=== PATIENT | male | born 1995 | race Caucasian/White ===

== ENCOUNTER → 2020-07-20 | Outpatient (CLI) | payer MEDICARE, MEDICAID | END | disposition home or self-care (01) | LOC: CVU 16:00 | PROVIDERS: ATTEND Internal Medicine Cardiovascular Disease | DX: R55 Syncope and collapse (principal); I47.1 Supraventricular tachycardia | CPT/HCPCS: 93306 ==

== ENCOUNTER 2020-12-26 14:14 | Outpatient (CLI) | payer MEDICARE, MEDICAID ==
[2020-12-26] MEDS ORDERED: LAMO200T6 PO (14:54)
[2020-12-27] MEDS ORDERED: BACL-19 PO (13:41)
[2020-12-27] MEDS ORDERED: METO25TA91 PO (13:41)
[2020-12-27] MEDS ORDERED: MELO15TA24 PO (13:41)
[2020-12-27] MEDS ORDERED: LISD60CA PO (13:41)
[2020-12-27] MEDS ORDERED: BREX2TAB PO (13:41)
[2020-12-27] MEDS ORDERED: BENZ2TAB6 PO (13:41)
[2020-12-27] MEDS ORDERED: MIDO5TAB9 PO (13:41)
[2020-12-27] MEDS ORDERED: MONT10TA6 PO (13:41)
[2020-12-30] MEDS ORDERED: OMEP-110 PO (13:01)
[2020-12-30] MEDS ORDERED: REMIFENTANIL 2 MG ONE (13:55)
== END 2020-12-30 18:20 | disposition home or self-care (01) ==
LOC: STAR 14:14
PROVIDERS: ATTEND Otolaryngology
DX: Z20.822 Contact with and (suspected) exposure to COVID-19 (principal); J32.0 Chronic maxillary sinusitis; J34.2 Deviated nasal septum; H04.222 Epiphora due to insufficient drainage, left side
CPT/HCPCS: U0003; U0005

== ENCOUNTER 2020-12-30 12:04 | Day surgery (SDC) | payer MEDICARE, MEDICAID ==
[~2020-12-30] VITALS: Ht 190.5 cm; Wt 125.3 kg
[~2020-12-30 12:04] MED LIST: BACL-19 PO; BENZ2TAB6 PO; BREX2TAB PO; FENTANYL PF 250 MCG/5ML ONE; LAMO200T6 PO; LISD60CA PO; MELO15TA24 PO; METO25TA91 PO; MIDAZOLAM 1 MG/ML, 2ML ONE; MIDO5TAB9 PO; MONT10TA6 PO; PROPOFOL 50 ML ONE
[2020-12-30 12:56] VITALS: BP 132/85
[2020-12-30] MEDS ORDERED: LACTATED RINGERS 1,000 ML IV SCH (13:00)
[2020-12-30] MEDS ORDERED: CHLORHEXIDINE 15 ML UDC PO ONE (13:00)
[2020-12-30] MEDS ORDERED: OMEP-110 PO (13:01)
[2020-12-30] MEDS ORDERED: HYDROmorphone 1 MG/ML, 1ML INJ ONE (13:04)
[2020-12-30] MEDS ORDERED: REMIFENTANIL 2 MG ONE (13:55)
[2020-12-30] MEDS ORDERED: EPINEPHRINE TOPICAL SOLN 1 MG/ML, 30ML ONE (14:04)
[2020-12-30] MEDS ORDERED: FLUORESCEIN SODIUM 500 MG/5 ML ONE (14:05)
[2020-12-30] MEDS ORDERED: BACITRACIN 50,000 UNIT ONE (14:05)
[2020-12-30] MEDS ORDERED: OXYMETAZOLINE NASAL SPRAY 0.05%,30ML ONE (14:05)
[2020-12-30] MEDS ORDERED: BACITRACIN OINT 500U/GM, 15 GM ONE (14:05)
[2020-12-30] MEDS ORDERED: LIDOCAINE/PF 1%, 30ML ONE (14:05)
[2020-12-30] MEDS ORDERED: EPINEPHRINE 1 MG/ML, 1ML ONE (14:05)
[2020-12-30] MEDS ORDERED: DEXAMETHASONE 4 MG/ML, 1ML ONE (14:21)
[2020-12-30] MEDS ORDERED: SUCCINYLCHOLINE 20 MG/ML, 10ML ONE (14:21)
[2020-12-30] MEDS ORDERED: CEFAZOLIN 1,000 MG ONE (14:21)
[2020-12-30] MEDS ORDERED: ONDANSETRON 2MG/ML, 2ML ONE (14:21)
[2020-12-30] MEDS ORDERED: PROPOFOL 50 ML ONE ×3 (14:38→15:14)
[2020-12-30] MEDS ORDERED: NEOSPORIN OINT. PKT 1 PACKET ONE (14:57)
[2020-12-30] MEDS ORDERED: NEO/POLYMYX B/DEXA OPHTH OINT, 3.5GM RIGHTEYE ONE (15:30)
[2020-12-30] MEDS ORDERED: MEPERIDINE/PF 25MG/ML,1ML ONE (16:30)
[2020-12-30] MEDS ORDERED: TRIAMCINOLONE ACETONIDE 40 MG/ML, 1ML IM ONE (16:30)
[2020-12-30] MEDS ORDERED: OXYcodone 5 MG/5 ML ORAL.SOL UDC ONE (16:44)
[2020-12-30] MEDS ORDERED: hydrALAzine 20 MG/ML, 1ML IV PRN (17:00)
[2020-12-30] MEDS ORDERED: ONDANSETRON 2MG/ML, 2ML IVPush PRN (17:00)
[2020-12-30] MEDS ORDERED: ACETAMINOPHEN 325 MG TABLET PO PRN (17:00)
[2020-12-30] MEDS ORDERED: LABETALOL 5MG/ML, 20ML IV PRN (17:00)
[2020-12-30] MEDS ORDERED: MEPERIDINE/PF 25MG/0.5ML IVPush PRN (17:00)
[2020-12-30] MEDS ORDERED: EPHEDRINE 50 MG/ML, 1ML IVPush PRN (17:00)
[2020-12-30] MEDS ORDERED: PROMETHAZINE 25 MG/ML, 1ML IVPush PRN (17:00)
[2020-12-30] MEDS ORDERED: OXYcodone 5 MG/5 ML ORAL.SOL UDC PO PRN (17:00)
[2020-12-30] MEDS ORDERED: HYDROmorphone 1 MG/ML, 1ML INJ IVPush PRN (17:00)
[2020-12-30] MEDS ORDERED: NEO/POLY B/DEXA 5 ML DROPS LEFTEYE SCH (18:00)
[2020-12-30] MEDS ORDERED: NEO/POLYMYX B/DEXA OPHTH OINT, 3.5GM LEFTEYE SCH (18:00)
== END 2020-12-30 18:20 | disposition home or self-care (01) ==
LOC: OUT 12:04
PROVIDERS: ATTEND Otolaryngology
DX: H04.222 Epiphora due to insufficient drainage, left side (principal); J32.0 Chronic maxillary sinusitis; J34.2 Deviated nasal septum; J32.8 Other chronic sinusitis; G47.33 Obstructive sleep apnea (adult) (pediatric); J45.40 Moderate persistent asthma, uncomplicated; I10 Essential (primary) hypertension; F25.0 Schizoaffective disorder, bipolar type; Z88.8 Allergy status to other drugs, medicaments and biological substances; Z88.1 Allergy status to other antibiotic agents; Z91.040 Latex allergy status; Z79.899 Other long term (current) drug therapy
CPT/HCPCS: 30520; 31240; 31255; 31267; 88304; 88311; C1729; J0171; J0330; J0690; J1100; J1170; J2175; J2250; J2405; J2704; J3010; J7120

== ENCOUNTER 2020-12-30 21:22 | Emergency (ER) | payer MEDICARE, MEDICAID ==
[~2020-12-30] VITALS: Ht 190.5 cm; Wt 126.9 kg
[~2020-12-30 21:22] MED LIST changes: -FENTANYL PF 250 MCG/5ML ONE; -MIDAZOLAM 1 MG/ML, 2ML ONE; +OMEP-110 PO; -PROPOFOL 50 ML ONE
[2020-12-30 21:24] VITALS: BP 158/87
--- NOTE | 2020-12-30 23:31 | NUR ---
surgical territory manager: pt from lobby to room 20
--- NOTE | 2020-12-30 23:48 | NUR ---
PT AMBULATED TO ROOM 20. A&OX4, NO BLEEDING NOTED FROM NOSE AT THIS TIME. PT HAS BEEN HOLDING PRESSURE WHILE IN THE WAITING ROOM. MD TO BEDSIDE TO EVAL PT.
[2020-12-30] MEDS ORDERED: OXYMETAZOLINE NASAL SPRAY 0.05%,30ML ONE (23:52)
[2020-12-31] MEDS ORDERED: OXYMETAZOLINE NASAL SPRAY 0.05%,30ML NAS ONE
--- NOTE | 2020-12-31 00:05 | NUR ---
GIGI PROCURED FOR PT, AND MD TO BEDSIDE AND SPRAYED BOTH NOSTRILS.
--- NOTE | 2020-12-31 00:35 | NUR ---
F/U AND D/C INSTRUCTIONS GIVEN TO PT AND HE V/U. PT D/C'D AMBULATORY AND IN NO ACUTE DISTRESS. AFRIN BOTTLE GIVEN TO PT TO TAKE.
== END 2020-12-31 00:37 | disposition home or self-care (01) ==
LOC: ED 12-31 00:10
DX: R04.0 Epistaxis (principal); I10 Essential (primary) hypertension
CPT/HCPCS: 99282